=== PATIENT | female | born 2000 | race Caucasian/White ===

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

== ENCOUNTER 2018-06-27 20:34 | Inpatient (IN) | payer MEDICAID ==
[~2018-06-27] VITALS: Ht 162.6 cm; Wt 46.7 kg
[2018-06-27 20:45] VITALS: Ht 162.6 cm; Wt 46.7 kg
[2018-06-27 23:08] LABS: UA SPECIFIC GRAVITY >=1.030 (1.005-1.035); microscopic required? YES; urine erythrocyte TRACE (NEGATIVE)
[2018-06-27 23:12] LABS: BASOPHIL % 0.2 % (0-2); PLATELET COUNT 275 x10^3mcL (130-400); RED CELL DISTRIBUTION WIDTH 14.1 % (11.5-14.5)
[2018-06-27 23:40] LABS: CALCIUM 9.5 mg/dL (8.5-10.1); CARBON DIOXIDE 19.6 mmol/L (21-32); CHLORIDE SERUM 101 mmol/L (98-107); CREATININE SERUM 0.6 mg/dL (0.6-1.0); GFR1 > 60 mL/min; GLUCOSE SERUM 81 mg/dL (74-106); POTASSIUM SERUM 3.9 mmol/L (3.5-5.1); SODIUM SERUM 137 mmol/L (136-145)
[2018-06-27 23:52] LABS: ALBUMIN 4.1 g/dL (3.4-5.0); ALKALINE PHOSPHATASE 42 U/L (46-116); ALT/SGPT 17 U/L (14-59); AST/SGOT 16 U/L (15-37); BILIRUBIN TOTAL 0.4 mg/dL (0.20-1.00); FREE T4 1.74 ng/dL (0.76-1.46); LIPASE 277 IU/L (73-393)
[2018-06-28 02:11] VITALS: BP 100/52
[2018-06-28 03:19] LABS: CHOLESTEROL/HDL RATIO 3.2; MAGNESIUM 2.1 mg/dL (1.8-2.4); PHOSPHOROUS 4.6 mg/dL (2.5-4.9)
[2018-06-28 06:10] VITALS: BP 95/53
[2018-06-28 06:11] LABS: CALCIUM 8.7 mg/dL (8.5-10.1); CARBON DIOXIDE 20.1 mmol/L (21-32); CHLORIDE SERUM 105 mmol/L (98-107); CREATININE SERUM 0.5 mg/dL (0.6-1.0); GFR1 > 60 mL/min; GLUCOSE SERUM 76 mg/dL (74-106); SODIUM SERUM 137 mmol/L (136-145)
[2018-06-28 06:25] LABS: BASOPHIL % 0.5 % (0-2); PLATELET COUNT 244 x10^3mcL (130-400); RED CELL DISTRIBUTION WIDTH 14.2 % (11.5-14.5)
[2018-06-28 07:38] VITALS: BP 93/47
[2018-06-28 11:24] VITALS: BP 93/47
== END 2018-06-28 14:38 | disposition home or self-care (01) | DRG 566 ==
LOC: ED 20:34 → MU 06-28 00:56
PROVIDERS: Emergency Medicine; ADMIT Family Medicine
DX: O21.0 Mild hyperemesis gravidarum (principal); N17.0 Acute kidney failure with tubular necrosis; E05.90 Thyrotoxicosis, unspecified without thyrotoxic crisis or storm; O99.281 Endocrine, nutritional and metabolic diseases complicating pregnancy, first trimester; O26.831 Pregnancy related renal disease, first trimester; Z3A.08 8 weeks gestation of pregnancy
CPT/HCPCS: 84439; 87804; J0696; J1200; J2765; J7030; Q0092